=== PATIENT | female | born 1945 | race Native Hawaiian/Other Pacific Islander ===

== ENCOUNTER 2017-09-19 08:24 | Outpatient (CLI) | payer OTHER ==
[~2017-09-19 08:24] MED LIST: ASPIRIN ADULT L81 MG PO; CENTRUM SILVER PO; CO Q-10200 MG PO; D32000 UNIT PO; FISH OIL1 C10 PO; LEVO0.0723 PO; LEXAPRO10 MG OR; LISI20TA11 PO
== END 2017-09-19 09:45 | disposition home or self-care (01) ==
LOC: MAMMO 08:24
DX: Z12.31 Encounter for screening mammogram for malignant neoplasm of breast (principal)

== ENCOUNTER 2018-11-26 09:00 | Outpatient (CLI) | payer OTHER ==
[2018-11-26 09:13] LABS: PLATELET COUNT 211 K/uL (152-353)
[2018-11-26 09:38] LABS: POTASSIUM 4.7 mmol/L (3.6-5.2)
== END 2018-11-26 22:21 | disposition home or self-care (01) ==
LOC: LABW 09:00
PROVIDERS: Physician Assistant
DX: M19.90 Unspecified osteoarthritis, unspecified site (principal); E03.9 Hypothyroidism, unspecified; I10 Essential (primary) hypertension; Z79.899 Other long term (current) drug therapy; E55.9 Vitamin D deficiency, unspecified
CPT/HCPCS: 36415; 80053; 80061; 82306; 83036; 84439; 84443; 85027

== ENCOUNTER 2019-01-19 09:10 | Emergency (ER) | payer OTHER ==
[~2019-01-19] VITALS: Ht 160 cm; Wt 83.0 kg
[~2019-01-19 09:10] MED LIST changes: -LEXAPRO10 MG OR; +LEXAPRO10 MG PO
[2019-01-19 09:15] VITALS: TEMP 98.1
[2019-01-19 10:26] LABS: PLATELET COUNT 205 K/uL (152-353)
[2019-01-19 10:32] LABS: POTASSIUM 4.2 mmol/L (3.6-5.2)
[2019-01-19 11:10] VITALS: BP 159/71
== END 2019-01-19 11:13 | disposition home or self-care (01) ==
LOC: ED 09:10
PROVIDERS: Family Medicine
DX: M50.30 Other cervical disc degeneration, unspecified cervical region (principal); M47.892 Other spondylosis, cervical region; I10 Essential (primary) hypertension
CPT/HCPCS: 36415; 80053; 81000; 85027; 96372; 99283; J1885

== ENCOUNTER 2019-10-27 07:44 | Outpatient (CLI) | payer OTHER ==
[2019-10-27 08:19] LABS: PLATELET COUNT 230 K/uL (152-353)
[2019-10-27 08:44] LABS: POTASSIUM 4.1 mmol/L (3.6-5.2)
== END 2019-10-27 19:23 | disposition home or self-care (01) ==
LOC: LABW 07:44
PROVIDERS: Internal Medicine
DX: R20.2 Paresthesia of skin (principal)
CPT/HCPCS: 36415; 80053; 84443; 85027; 85651; 86038; 86140

== ENCOUNTER 2019-11-02 12:34 | Outpatient (CLI) | payer OTHER | END 2019-11-02 19:45 | disposition home or self-care (01) | LOC: RESP 12:34 | DX: G56.02 Carpal tunnel syndrome, left upper limb (principal); G56.22 Lesion of ulnar nerve, left upper limb | CPT/HCPCS: 95885; 95909 ==

== ENCOUNTER 2021-01-09 12:15 | Outpatient (CLI) | payer OTHER ==
[2021-01-09 12:32] LABS: PLATELET COUNT 197 K/uL (152-353)
[2021-01-09 12:55] LABS: POTASSIUM 4.2 mmol/L (3.6-5.2)
== END 2021-01-09 21:54 | disposition home or self-care (01) ==
LOC: LAB 12:15
PROVIDERS: ATTEND Internal Medicine
DX: Z00.00 Encounter for general adult medical examination without abnormal findings (principal); Z13.820 Encounter for screening for osteoporosis; Z79.899 Other long term (current) drug therapy
CPT/HCPCS: 80053; 80061; 81000; 82306; 84439; 84443; 85027

== ENCOUNTER 2023-03-07 09:57 | Outpatient (CLI) | payer OTHER | END 2023-03-07 19:21 | disposition home or self-care (01) | LOC: RAD 09:57 | PROVIDERS: ATTEND Student in an Organized Health Care Education/Training Program | DX: M17.9 Osteoarthritis of knee, unspecified (principal) ==

== ENCOUNTER 2023-04-23 13:23 | Outpatient (CLI) | payer OTHER | END 2023-04-23 19:03 | disposition home or self-care (01) | LOC: MAMMO 13:23 | PROVIDERS: ATTEND Student in an Organized Health Care Education/Training Program | DX: Z12.31 Encounter for screening mammogram for malignant neoplasm of breast (principal) ==